=== PATIENT | female | born 1965 | race Two or more races ===

== ENCOUNTER 2022-07-02 11:56 | Emergency (ER) | payer OTHER ==
[~2022-07-02] VITALS: Ht 154.9 cm; Wt 70.5 kg
[2022-07-02] MEDS ORDERED: EVER10TA PO ×2 (12:03→12:15)
[2022-07-02] MEDS ORDERED: TAMO20TA4 PO (12:03)
[2022-07-02] MEDS ORDERED: CARB150V9 MISC ×2 (12:03→12:15)
[2022-07-02] MEDS ORDERED: CALC-1038 PO ×2 (12:03→12:15)
[2022-07-02] MEDS ORDERED: TAMO10TA45 PO (12:15)
[2022-07-02] MEDS ORDERED: CYAN250014 MISC (12:15)
[2022-07-02] MEDS ORDERED: [UNRECOGNIZED DRUG - OTHER] MISC (12:15)
[2022-07-02] MEDS ORDERED: ATOR10TA PO (12:15)
[2022-07-02] MEDS ORDERED: CHOL500050 PO (12:15)
[2022-07-02] MEDS ORDERED: PACL100V MISC (12:15)
[2022-07-02 12:33] VITALS: BP 126/70
[2022-07-02 12:47] LABS: BASOPHILS % (AUTO) 1.9 % (0.0-2.0); EOSINOPHILS % (AUTO) 0.1 % (1.0-6.0); HEMATOCRIT 27.7 % (36-46); HEMOGLOBIN 9.4 g/dL (12.0-16.0); LYMPHOCYTES # (AUTO) 0.7 K/uL (1.0-4.8); LYMPHOCYTES % (AUTO) 14.3 % (22.0-44.0); MEAN CORPUSCULAR HEMOGLOBIN 30.7 pg (26.0-34.0); MEAN CORPUSCULAR VOLUME 90 fL (80-100); MONOCYTES # (AUTO) 0.1 K/uL (0.1-1.0); NEUTROPHILS # (AUTO) 3.8 K/uL (1.8-7.7); NEUTROPHILS % (AUTO) 81.7 % (40.0-70.0); PLATELET COUNT (AUTO) 146 K/uL (150-450); RED BLOOD CELL COUNT(AUTO) 3.06 MIL/uL (4.00-5.20); RED CELL DISTRIBUTION WIDTH 15.1 % (11.5-14.5)
[2022-07-02 12:53] LABS: ANION GAP 6 mmol/L (8-16); CALCIUM, TOTAL 9.3 mg/dL (8.8-10.5); CARBON DIOXIDE 28 mmol/L (22-29); CHLORIDE 106 mmol/L (98-107); CREATININE 0.78 mg/dL (0.60-1.30); GLUCOSE,RANDOM 156 mg/dL (70-110); POTASSIUM 3.5 mmol/L (3.5-5.1); SODIUM SERUM 140 mmol/L (136-145); UREA NITROGEN, BLOOD 10 mg/dL (7-18)
[2022-07-02 12:54] LABS: GLOMERULAR FILTR. RATE CALC > 60 mL/min (>60)
[2022-07-02 12:59] LABS: ALANINE AMINOTRANSFERASE 31 U/L (12-78); ALBUMIN 3.4 g/dL (3.4-5.0); ALKALINE PHOSPHATASE 125 U/L (46-116); ASPARTATE AMINOTRANSFERASE 50 U/L (15-37); BILIRUBIN,TOTAL 0.2 mg/dL (0.1-1.0); TOTAL PROTEIN, SERUM 7.3 g/dL (6.4-8.2)
== END 2022-07-02 13:38 | disposition home or self-care (01) ==
LOC: EMS 12:00
DX: D64.9 Anemia, unspecified (principal); C80.1 Malignant (primary) neoplasm, unspecified; C79.81 Secondary malignant neoplasm of breast
CPT/HCPCS: 80053; 85025; 99283